=== PATIENT | female | born 1945 | race African-American/Black ===

== ENCOUNTER 2016-10-14 13:23 | Emergency (ER) | payer OTHER, MEDICARE, BC ==
[2016-10-14] MEDS ORDERED: IBUPROFEN 600 MG TABLET PO ONE (13:58)
[2016-10-14] MEDS ORDERED: CYCLOBENZAPRINE HCL 10 MG TABLET PO ONE (13:59)
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
[2016-10-14 15:51] VITALS: BP 162/74
== END 2016-10-14 15:10 | disposition home or self-care (01) ==
LOC: ER 13:23
DX: S16.1XXA Strain of muscle, fascia and tendon at neck level, initial encounter (principal); M54.2 Cervicalgia; E04.1 Nontoxic single thyroid nodule; V87.7XXA Person injured in collision between other specified motor vehicles (traffic), initial encounter
CPT/HCPCS: 72125; 99283